=== PATIENT | female | born 1935 | race Caucasian/White ===

== ENCOUNTER → 2023-10-31 | Outpatient (CLI) | payer MEDICARE, SELFPAY ==
--- NOTE | 2023-10-31 12:56 | CDU_ITS ---
Reason For Study: dizziness and giddiness Rt. Velocities/BP Lt. Velocities/BP Prox CCA 85.3/10.7 cm/sec. Prox CCA 108.4/12.6 cm/sec. Mid CCA 94.9/14.6 cm/sec. Mid CCA 96.1/15.1 cm/sec. Dist CCA 80.6/11.3 cm/sec. Dist CCA 85.1/15.1 cm/sec. Prox ICA 168.6/31.6 cm/sec. Prox ICA 233.7/43.0 cm/sec. Mid ICA 204.8/24.8 cm/sec. Mid ICA 269.3/23.6 cm/sec. Dist ICA 135.7/20.6 cm/sec. Dist ICA 108.3/18.8 cm/sec. Rt. ICA/CCA = 2.2. Lt. ICA/CCA = 2.8. Prox ECA 183.2/4.2 cm/sec. Prox ECA 148.5 cm/sec. Rt. Vert. 65.5/9.7 cm/sec. Lt. Vert. 78.4/12.4 cm/sec. Right Extracranial There is intimal thickening but no significant atherosclerotic plaque noted in the right common carotid artery. There is heterogeneous, irregular atherosclerotic plaque noted in the right internal carotid artery. There is heterogeneous, irregular atherosclerotic plaque noted in the right external carotid artery. Antegrade flow is noted in the right vertebral artery. Left Extracranial There is homogeneous, smooth atherosclerotic plaque noted in the left common carotid artery. There is heterogeneous, irregular atherosclerotic plaque noted in the left internal carotid artery. There is heterogeneous, irregular atherosclerotic plaque noted in the left external carotid artery. Antegrade flow is noted in the left vertebral artery. Procedure Carotid Duplex [id number]. This is a Carotid Duplex examination using B-mode, color flow and specral Doppler. The exam was diagnostic. Exam performed in department. VL/Carotid Duplex Ultrasound Interpretation Summary Moderate (50-69%) stenosis right extracranial internal carotid. Severe (>70%) stenosis left extracranial internal carotid. Patent and antegrade vertebrals bilaterally. Ordering Physician: Desi King Referring Physician: Desi King Performed By: Tera Leavitt, RVT
== END | disposition home or self-care (01) ==
LOC: CVS 12:42
PROVIDERS: PCP Internal Medicine; Referring Provider Internal Medicine; Visit Provider Internal Medicine
DX: R42 Dizziness and giddiness (principal)
CPT/HCPCS: 93880